=== PATIENT | male | born 1990 | race Caucasian/White ===

== ENCOUNTER 2018-01-17 06:32 | Emergency (ER) | payer OTHER ==
[~2018-01-17] VITALS: Ht 180.3 cm; Wt 81.7 kg
[2018-01-17 07:00] LABS: HEMATOCRIT 42.3 % (42.0-52.0); HEMOGLOBIN 14.4 gm/dL (14.0-18.0); MCH 30.7 pg (26.0-34.0); MCHC 33.9 g/dL (28.0-37.0); MCV 90.4 fL (80.0-100.0); NUCLEATED RBCS 0 /100WBC; PLATELET COUNT* 225 thou/uL (150-400); RBC 4.68 mil/uL (4.50-6.00); RDW-CV 13.4 % (10.5-14.5); WBC 24.4 thou/uL (4.0-11.0)
[2018-01-17 07:11] LABS: CALCIUM 8.7 mg/dL (8.5-10.1); CREATININE 1.1 mg/dL (0.6-1.3); POTASSIUM 3.6 mmol/L (3.5-5.1)
[2018-01-17 07:15] LABS: ALBUMIN 3.5 g/dL (3.4-5.0); TOTAL BILIRUBIN 0.8 mg/dL (<0.1-1.0); TOTAL PROTEIN 7.3 g/dL (6.4-8.2)
[2018-01-17 07:22] LABS: ABSOLUTE LYMPHOCYTES 2.4 thou/uL (0.8-5.3); ANISOCYTOSIS 1+; PLATELET ESTIMATE ADEQUATE; POIKILOCYTOSIS 1+
[2018-01-17 07:44] LABS: INFLUENZA A ANTIGEN None Detected (None Detect)
[2018-01-17 07:49] LABS: URINE BILIRUBIN NEGATIVE (Negative); URINE BLOOD NEGATIVE (Negative); URINE CLARITY CLEAR; URINE COLOR YELLOW; URINE GLUCOSE-RANDOM NEGATIVE (Negative); URINE KETONES NEGATIVE (Negative); URINE LEUKOCYTES-REFLEX NEGATIVE (Negative); URINE NITRITE-REFLEX NEGATIVE (Negative); URINE PROTEIN TRACE (Negative); URINE SPECIFIC GRAVITY 1.025 (1.005-1.030); URINE UROBILINOGEN 0.2 E.U./dl (0.2-1.0)
[2018-01-17] MEDS ORDERED: HYDROCODON-ACE1 EAC7 PO (08:57)
[2018-01-17] MEDS ORDERED: CIPROFLOXACIN500 M1 PO (08:57)
[2018-01-17 09:11] VITALS: BP 114/66
== END 2018-01-17 09:11 | disposition home or self-care (01) ==
LOC: M.ERS 06:32
PROVIDERS: Emergency Medicine Emergency Medical Services
DX: J11.1 Influenza due to unidentified influenza virus with other respiratory manifestations (principal); N45.2 Orchitis; Z88.8 Allergy status to other drugs, medicaments and biological substances

== ENCOUNTER 2020-08-16 23:54 | Emergency (ER) | payer OTHER ==
[~2020-08-16] VITALS: Ht 177.8 cm; Wt 83.9 kg
[~2020-08-16 23:54] MED LIST: CIPROFLOXACIN500 M1 PO; HYDROCODON-ACE1 EAC7 PO
[2020-08-17 01:21] LABS: ABSOLUTE BASOPHILS 0.1 thou/uL (0.0-0.2); ABSOLUTE EOSINOPHILS 0.2 thou/uL (0.0-0.7); ABSOLUTE LYMPHOCYTES 2.5 thou/uL (0.8-5.3); ABSOLUTE MONOCYTES 0.7 thou/uL (0.0-1.2); ABSOLUTE NEUTROPHILS 7.2 thou/uL (1.6-8.1); BASOPHILS 0.7 %; EOSINOPHILS 1.8 %; HEMATOCRIT 38.7 % (42.0-52.0); HEMOGLOBIN 13.6 gm/dL (14.0-18.0); LYMPHOCYTES 23.3 %; MCH 30.2 pg (26.0-34.0); MCHC 35.2 g/dL (28.0-37.0); MONOCYTES 6.9 %; MPV 6.9 fl. (7.2-11.1); NUCLEATED RBCS 0 /100WBC; PLATELET COUNT* 264 thou/uL (150-400); POLYS 67.3 %; RBC 4.49 mil/uL (4.50-6.00); RDW-CV 13.7 % (10.5-14.5); WBC 10.7 thou/uL (4.0-11.0)
[2020-08-17 01:25] LABS: CALCIUM 9.1 mg/dL (8.5-10.1); CREATININE 1.2 mg/dL (0.6-1.3); POTASSIUM 4.1 mmol/L (3.5-5.1)
[2020-08-17] MEDS ORDERED: HYDROCODON-ACE1 EAC7 PO (01:56)
[2020-08-17] MEDS ORDERED: NAPROSYN500 MG PO (01:56)
[2020-08-17] MEDS ORDERED: AUGMENTIN 500-1 EACH PO (01:56)
[2020-08-17 02:18] VITALS: BP 149/78
== END 2020-08-17 02:19 | disposition home or self-care (01) ==
LOC: M.ERS 23:54
PROVIDERS: Personal Emergency Response Attendant
DX: S00.12XA Contusion of left eyelid and periocular area, initial encounter (principal); K02.9 Dental caries, unspecified; L03.211 Cellulitis of face; Z88.8 Allergy status to other drugs, medicaments and biological substances; X58.XXXA Exposure to other specified factors, initial encounter; Y93.89 Activity, other specified; Y92.89 Other specified places as the place of occurrence of the external cause; Y99.8 Other external cause status